=== PATIENT | male | born 1985 | race Caucasian/White ===

== ENCOUNTER 2017-03-18 00:02 | Emergency (ER) | payer MEDICAID ==
[~2017-03-18] VITALS: Ht 177.8 cm; Wt 86.2 kg
[2017-03-18 00:19] LABS: LYMPH % 37.1 % (10-50)
--- NOTE | 2017-03-18 00:40 | Emergency Room Report ---
History of Present Illness Time Seen by 001Laura Presenting Problem in Triage Pt arrived:Walked Presenting Problem:C/O PAIN TO CHEST SHARP CONSTANT PAIN X 20 MIN. 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 N Clinical Suspician of Infection? N Mental Status: 1 - Regular (Normal Baseline) Sepsis Risk:Low Sepsis Risk Have you (or family members/close friends) recently traveled outside the [place]? N If Yes, where/when: Have you had exposure to infectious disease within the past month? N TB? Other? Specify: Source patient, RN notes reviewed, family, old records Exam Limitations no limitations Comment acute onset of ant chest pain with rad to back with hx of gerd but no chest pain or ht disease Cardiac Chest Pain Chest pain indicative of cardiac No Timing/Duration this evening Severity moderate ALLERGIES Coded Allergies: No Known Allergies (03/18/17) Home Medications Reported Medications No Known Home Medications History Medical History General CAD? No Angina: No WV: No Hypertension? No Hyperlipidemia? No CHF? No DVT? No PE? No COPD? No Asthma? No Anemia? No GERD? No Gastric ulcers? No GI Bleed? No Hernia? No Thyroid Problems? No Hypothyroidism? No CVA? No Seizures? No Diabetes? No Renal Insuffiency? No End Stage Renal Disease? No UTI? No Stones? No BPH? No GB Disease: No Nephritic Syndrome? No Asplenia? No Hepatitis? No Sickle Cell Disease? No Arthritis? No Migraines? No Cataracts? No Glaucoma? No MRSA? No HIV? No TB? No Anxiety? No Depression? No Cancer? No Site: N More? No Immunization Hx DT/Tetanus 1-4 Years Ago Surgical Hx Previous Surgery?N Social History Smoking Hx Smoker: Current Every Day Smoker Tobacco: Yes Type Cigarettes Alcohol Alcohol: Yes Drugs none Review of Systems All Other Systems Reviewed and Negative Constitutional denies fever Eyes denies drainage ENT denies: ear pain, epistaxis, throat pain. Respiratory denies cough, denies shortness of breath, denies wheezing Cardiovascular see HPI, chest pain, denies palpitations, denies syncope Gastrointestinal denies abdominal pain, denies diarrhea, denies vomiting Genitourinary denies: dysuria, frequency, hesitancy, hematuria. Musculoskeletal denies back pain, denies joint pain, denies joint swelling, denies neck pain Skin denies rash Psychiatric/Neurological denies headache, denies seizure Physical Exam Vital Signs Vital Signs Date Time Temp Pulse Resp B/P Pulse O2 O2 Flow FiO2 Ox Delivery Rate 03/18 0150 71 20 109/56 96 03/18 0116 78 18 139/63 95 03/18 0104 81 18 122/51 95 03/18 0040 89 21 126/61 95 03/18 0020 90 20 114/59 95 03/18 0015 89 22 150/137 94 03/18 0010 127 18 177/111 95 03/18 0002 97.5 100 18 177/111 100 - WBC >12,000 or <4,000 or 10% bands? 2 or more SIRS Criteria Met? B/P:109/56 MAP:66 Creatinine >2.0? UA output<0.5ml/kg/hr for 2 hrs? Platelet count >100,000? Lactate >2.0mmol/1? INR >1.2 or PTT > than 60 sec? Evidence of Organ Dysfunction? Provider documented clinical suspician of infection? N Sepsis Criteria Count: 0 Sepsis Risk: Low Sepsis Risk General Appearance no apparent distress Eye Exam - bilateral eye PERRL, bilateral eye EOMI Ear, Nose, Throat normal ENT inspection Neck supple Respiratory Status No: respiratory distress. Lung Sounds bilateral: lungs clear. 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 No Results/Orders Laboratory Tests 03/18/17 0005: Amylase 56, Lipase 106 03/18/17 0005: Sodium 139, Potassium 4.6, Chloride 103, Carbon Dioxide 27, BUN 8, Creatinine 1.0, Estimated Creat Clear 132, Estimated GFR (MDRD) 88, Glucose 96, Calcium 8.9 , Total Bilirubin 0.4, AST 26, ALT 41, Alkaline Phosphatase 90, Creatine Kinase 207, CK-MB (CK-2) Rel Index 0.4, CK and CKMB Interp 0.9, Troponin I < 0.02, Total Protein 7.4, Albumin 3.8, Globulin 3.6 H, Albumin/Globulin Ratio 1.1, WBC 8.0, RBC 5.21, Hgb 17.0, Hct 48.9, MCV 94.0, RDW 12.6, Plt Count 174, MPV 5.9 L , Gran % 49.6, Gran # 4.0, Lymphocytes % 37.1, Monocytes % 7.9, Eosinophils % 4.8, Basophils % 0.7, Lymphocytes # 3.0, Monocytes # 0.6, Eosinophils # 0.4, Basophils # 0.1, PUBS MCHC 34.8, MCH 32.7 H Current Medication Orders Sig/Melva Start time Last Medication Dose Route Stop Time Status Admin Famotidine 0 .STK-MED ONE 03/18 110 DC IV Metoclopramide HCl 0 .STK-MED ONE 03/18 109 DC .ROUTE Famotidine 20 MG ONCE ONE 03/18 100 DC 03/18 IV 03/18 010 0113 Metoclopramide HCl 10 MG ONCE ONE 03/18 100 DC 03/18 IVP 03/18 010 0113 Sodium Chloride 8 ML ONCE ONE 03/18 100 DC 03/18 IV 03/18 010 0114 Ondansetron HCl 0 .STK-MED ONE 03/18 0028 DC .ROUTE Aspirin 324 MG ONCE ONE 03/18 15 DC 03/18 PO 03/18 001 0010 Nitroglycerin 0.4 MG ONCE ONE 03/18 15 DC 03/18 PO 03/18 001 0015 Sodium Chloride 10 ML PRN PRN 03/18 15 AC 03/18 IV 03/19 0009 0113 Aspirin 0 .STK-MED ONE 03/18 10 DC .ROUTE Nitroglycerin 0 .STK-MED ONE 03/18 10 DC SL Orders Procedure Date/time Status LIPASE 03/18 004 Complete AMYLASE 03/18 004 Complete ELECTROCARDIOGRAM REQUEST 03/18 10 Active CHEST(2 VIEWS-NOT PORTABLE) 03/18 10 Active IV SALINE LOCK 03/18 10 Active DESKTOP SPECIALIST 03/18 10 Active COMPLETE METABOLIC PANEL 03/18 10 Complete CBC WITH AUTO DIFF 03/18 10 Complete CARDIAC ENZYMES 03/18 10 Complete 12 LEAD EKG-SHASHANK (INITIAL) 03/18 0001 Active 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 of ischemic chgs XRAY/CT/US XRAY/CT/US XRAY chest XR interpretation by reviewed by me Xray Results normal/NAD Departure Departure Time of Disposition 015 Disposition DC Home or Self Care(routine) Clinical Impression Primary Impression: Chest pain Qualifiers: Chest pain type: unspecified Qualified Code: R07.9 - Chest pain, unspecified Condition STABLE Referrals ADDISON PA, RAFIA Thompson Patient Instructions DI for Atypical Chest Pain Additional Instructions see pcp for follow up and addt tests Discharge Counseling Counseled pt/family regarding diagnosis, test results, follow up needs Prescriptions Current Visit Scripts No Known Home Medications ED Critical Care Critical Care No at 0157
[2017-03-18 00:56] LABS: BUN 8 mg/dL (7-18); GFR (ESTIMATED) 88 ML/MIN (>60)
[2017-03-18 01:58] VITALS: BP 109/56
--- NOTE | 2017-03-18 07:49 | RADIOLOGY REPORT PS360 ---
CHEST(2 VIEWS-NOT PORTABLE) Ordering Physician: José Luis Briscoe MD Patient Age: 31 years: Male HISTORY: C/O CHEST PAINchest pain. Nonsmoker TECHNIQUE: PA and lateral chest FINDINGS Less optimal inspiration today than on the previous chest film to 316. With this are crowding and accentuation markings infrahilar region towards bases bilaterally.. Mild Bibasilar atelectasis - most evident on right lung base. Difficult to exclude a minimal infiltrate at the medial right lung base,/ right infrahilar region. The heart & mediastinal structures otherwise appears satisfactory. Hilar regions slightly more generous and upper normal prominence bilaterally- but likely accentuated by less optimal inspiration No pleural effusion. No pneumothorax. No chest wall or rib abnormalities on this routine chest. T-spine appears stable and intact. IMPRESSION: ------- Significantly less optimal inspiration today than previous study.This crowds markings at lung bases Mild Bibasilar atelectasis most evident right lung base. Difficult to exclude minimal infiltrate here at RLL lobe . No pneumothorax. No pleural effusion. No definite acute findings
--- OUTSIDE RECORDS SUMMARY | 2017-03-19 21:22 | External Medical Summary Rpt ---
Author Author , Organization [employer] Address Unknown Phone Unavailable Care Team Providers Care Unloader Name Role Phone SHAIKH ALL, SHAIKH ALL Unavailable Unavailable RIO OSULLIVAN-C Unavailable Unavailable RIO HOROWITZ-C CARLOS MANUEL [facility], Unavailable Unavailable [facility], Unavailable Unavailable [facility] MELLISA MISSY, MELLISA Unavailable Unavailable [facility] Un[facility] MOSER JACEY, EHSAN JACEY Unavailable Unavailable EHSAN MARI, EHSAN JACEY Unavailable Unavailable [facility], Unavailable Unavailable [facility] Unavailable Unavailable [facility], [facility] Purpose Continuity of Care Document - 01-03-2015 through 2016 Problems Code Diagnosis DOS Provider Status [id number] PAIN IN 03-24-2016 [facility] H5213 MYOPIA 01-11-2016 MOS[facility] JACEY BILATERAL 22563 UNSPECIFIED 02-12-2015 [facility] [place] [facility] 4619 ACUTE 02-12-2015 [facility] SINUSITIS, PHYSICIANS UNSPECIFIED GROUP 7862 COUGH 02-12-2015 [facility] 7241 PAIN IN 01-03-2015 [facility] THORACIC [facility] SPINE 7242 LUMBAGO 01-03-2015 [facility] 7393 NONALLOPATH 01-03-2015 [facility] LESION [facility] OF LUMBAR REGION NEC 7395 NONALLOPATH 01-03-2015 [facility]INO IC LESION [facility] OF PELVIC REGION NEC Procedures Procedure DOS Code Location Performer Comment RADEX 03162 [facility] COMPLETE INC INC MINIMUM 3 VIEWS RADEX 63801 [place] [facility] 2 6 MEDICAL VIEWS IMAGING ASS OPHTH 79334 EHSAN MOSER JACEY MEDICAL 6 XM&EVAL COMPRE NEW PT 1/> VST INJECTION J1040 [facility] MELLISA 5 PHYSICIAN MISSY METHYLPRE S GROUP DNISOLONE ACETATE 80 MG THERAPEUT 57285 [facility] MELLISA IC 5 PHYSICIAN MISSY PROPHYLAC S GROUP TIC/DX INJECTION SUBQ/IM CHIROPRAC 44965 WILBER MERINO TIC 5 [facility] BE[facility] MANIPULAT JUANCARLOS [place] SPINAL 1-2 REGIONS Encounters Encounter Start End Date Code Location Performer Type Date [facility] - 6 6 [facility] OUTPATIEN INC T OFFICE 88174 [facility] RIO [place]S [place] 6 6 PHYSICIAN STONE T VISIT S GROUP RAINA HOROWITZ 10 MINUTES OFFICE 21876 [facility] MELLISA OUTPATIEN 5 5 PHYSICIAN MISSY T NEW 20 S GROUP MINUTES
--- OUTSIDE RECORDS SUMMARY | 2017-03-19 21:22 | External Medical Summary Rpt ---
Author Author VIN[facility] Mullins, [employer] Organization [employer] Address Unknown Phone Unavailable
--- OUTSIDE RECORDS SUMMARY | 2017-03-19 21:22 | External Medical Summary Rpt ---
Author Author , Organization [employer] Address Unknown Phone Unavailable Care Team Providers Care Lead Sewage Plant Operator Name Role Phone SHAIKH ALL, SHAIKH ALL Unavailable Unavailable PATEPADMA JAIME PA-C Unavailable Unavailable CARLOS MANUEL, RIO JAIME PA-C CARLOS MANUEL [facility], Unavailable Unavailable [facility], Unavailable Unavailable [facility] MELLISA MISSY, MELLISA Unavailable Unavailable [facility] Un[facility] MOSER JACEY, [facility] JACEY Unavailable Unavailable [facility] J[facility]Y, MOS[facility] JACEY Unavailable Unavailable [facility], Unavailable Unavailable [facility] Unavailable Unavailable [facility], [facility] Purpose Continuity of Care Document - 01-03-2015 through 2016 Problems Code Diagnosis DOS Provider Status [id number] PAIN IN 03-24-2016 [facility] H5213 MYOPIA 01-11-2016 MOSER JACEY BILATERAL 49373 UNSPECIFIED 02-12-2015 [facility] [place] [facility] 4619 ACUTE 02-12-2015 [facility] SINUSITIS, PHYSICIANS UNSPECIFIED GROUP 7862 COUGH 02-12-2015 [facility] 7241 PAIN IN 01-03-2015 [facility] THORACIC [facility] SPINE 7242 LUMBAGO 01-03-2015 [facility] 7393 NONALLOPATH 01-03-2015 [facility] IC LESION [facility] OF LUMBAR REGION NEC 7395 NONALLOPATH 01-03-2015 [facility] IC LESION [facility] OF [place] NEC R07.9 CHEST PAIN, UNSPECIFIED Procedures Procedure DOS Code Location Performer Comment RADEX 39074 [place] [facility] 2 6 MEDICAL VIEWS IMAGING ASS RADEX 35751 [facility] COM[facility]TE INC INC MINIMUM 3 VIEWS OPHTH 81081 E[facility]AN FAJARDONES JACEY MEDICAL 6 XM&EVAL COMPRE NEW PT 1/> VST THERAPEUT 06314 [facility] MELLISA IC 5 PHYSICIAN MISSY PROPHYLAC S GROUP TIC/DX INJECTION SUBQ/IM INJECTION J1040 [facility] MELLISA 5 PHYSICIAN MISSY METHYLPRE S GROUP DNISOLONE ACETATE 80 MG CHIROPRAC 12074 WILBER MERINO TIC 5 [facility] BEBO MANIPULAT JUANCARLOS [place] SPINAL 1-2 REGIONS Encounters Encounter Start End Date Code Location Performer Type Date OFFICE 74709 [facility] RIO [facility] 6 6 PHYSICIAN STONE T VISIT S GROUP RAINA HOROWITZ 10 MINUTES [facility] ORLY - 6 6 [facility] OUTPATIEN [facility] T OFFICE 13503 [facility] MELLISA LO 5 5 PHYSICIAN MISSY T NEW 20 S GROUP MINUTES
--- OUTSIDE RECORDS SUMMARY | 2017-03-19 21:22 | External Medical Summary Rpt ---
Author Author , Organization [employer] Address Unknown Phone Unavailable Care Team Providers Care Glaze Wiper Name Role Phone SHAIKH ALL, SHAIKH ALL Unavailable Unavailable PATEPADMA JAIME PA-C Unavailable Unavailable CARLOS MANUEL, RIO JAIME PA-C CARLOS MANUEL [facility], Unavailable Unavailable [facility], Unavailable Unavailable [facility] MELLISA MISSY, MELLISA Unavailable Unavailable [facility] Un[facility] MOSER JACEY, [facility] J[facility]Y Unavailable Unavailable [facility] J[facility], [facility] JACEY Unavailable Unavailable [facility], Unavailable Unavailable [facility] Unavailable Unavailable [facility], [facility] Purpose Continuity of Care Document - 01-03-2015 through 2016 Problems Code Diagnosis DOS Provider Status [id number] PAIN IN 03-24-2016 [facility] H5213 MYOPIA 01-11-2016 MOSER JACEY BILATERAL 90263 UNSPECIFIED 02-12-2015 [facility] [place] [facility] 4619 ACUTE 02-12-2015 [facility] SINUSITIS, PHYSICIANS UNSPECIFIED GROUP 7862 COUGH 02-12-2015 [facility] 7241 PAIN IN 01-03-2015 [facility]ORAC[facility] SPINE 7242 LUMBAGO 01-03-2015 [facility] 7393 NONALLOPATH 01-03-2015 MERINO IC LESION [facility] OF LUMBAR REGION NEC 7395 NONALLOPATH 01-03-2015 MER[facility] IC LESION [facility] OF [place] REG[place] NEC R07.9 CHEST PAIN, UNSPECIFIED Procedures Procedure DOS Code Location Performer Comment RADEX 17097 [place] SHAIKH ALL [facility] 2 6 MEDICAL VIEWS IMAGING ASS RADEX 08488 [facility] COMPLETE INC INC MINIMUM 3 VIEWS OPHTH 69601 EHSAN FAJARDONES JACEY MEDICAL 6 XM&EVAL COMPRE NEW PT 1/> VST THERAPEUT 18996 [facility] MELLISA IC 5 PHYSICIAN MISSY PROPHYLAC S GROUP TIC/DX INJECTION SUBQ/IM INJECTION J1040 [facility] MELLISA 5 PHYSICIAN MISSY METHYLPRE S GROUP DNISOLONE ACETATE 80 MG CHIROPRAC 10588 WILBER MERINO TIC 5 BEBO BEBO MANIPULAT JUANCARLOS [place] SPINAL 1-2 REGIONS Encounters Encounter Start End Date Code Location Performer Type Date OFFICE 58888 [facility] RIO [facility] 6 6 PHYSICIAN STONE T VISIT S GROUP RAINA HOROWITZ 10 MINUTES [facility] ORLY - 6 6 [facility] OUTPATIEN [facility] T OFFICE 98088 [facility] MELLISA LO 5 5 PHYSICIAN MISSY T NEW 20 S GROUP MINUTES
--- OUTSIDE RECORDS SUMMARY | 2017-03-19 21:22 | External Medical Summary Rpt ---
Demographics Preferred Language Australian Marital Status Unknown Adventism Affiliation Unknown Race Unknown Ethnic Group Unknown Author Author , Organization [employer] Address Unknown Phone Unavailable Purpose Continuity of Care Document - through 2016 Immunization No patient found.
--- OUTSIDE RECORDS SUMMARY | 2017-03-19 21:22 | External Medical Summary Rpt ---
Demographics Preferred Language Slovenian Marital Status Unknown Yarsani Affiliation Unknown Race Unknown Ethnic Group Unknown Author Author , Organization [employer] Address Unknown Phone Unavailable Purpose Continuity of Care Document - through 2016 Immunization No patient found.
--- OUTSIDE RECORDS SUMMARY | 2017-03-19 21:22 | External Medical Summary Rpt ---
Author Author , Organization [employer] Address Unknown Phone Unavailable Care Team Providers Care Rn Resource Nurse Name Role Phone SHAIKH ALL, SHAIKH ALL Unavailable Unavailable RIO OSULLIVAN-C Unavailable Unavailable RIO HOROWITZ-C CARLOS MANUEL [facility], Unavailable Unavailable [facility], Unavailable Unavailable [facility] MELLISA MISSY, MELLISA Unavailable Unavailable [facility] Un[facility] MOSER JACEY, EHSAN JACEY Unavailable Unavailable EHSAN MARI, EHSAN JACEY Unavailable Unavailable [facility], Unavailable Unavailable [facility] Unavailable Unavailable [facility], [facility] Purpose Continuity of Care Document - 01-03-2015 through 2016 Problems Code Diagnosis DOS Provider Status [id number] PAIN IN 03-24-2016 [facility] H5213 MYOPIA 01-11-2016 MOSER JACEY BILATERAL 84070 UNSPECIFIED 02-12-2015 [facility] [place] [facility] 4619 ACUTE 02-12-2015 [facility] SINUSITIS, PHYSICIANS UNSPECIFIED GROUP 7862 COUGH 02-12-2015 [facility] 7241 PAIN IN 01-03-2015 [facility] THORACIC [facility] SPINE 7242 LUMBAGO 01-03-2015 [facility] 7393 NONALLOPATH 01-03-2015 [facility] IC LESION BE[facility] OF LUMBAR REGION NEC 7395 NONALLOPATH 01-03-2015 [facility] IC LESION [facility] OF PELVIC REGION NEC Procedures Procedure DOS Code Location Performer Comment RADEX 47931 [facility] COMPLETE INC INC MINIMUM 3 VIEWS RADEX 72083 [place] [facility] 2 6 MEDICAL VIEWS IMAGING ASS OPHTH 19888 EHSAN MOSER JACEY MEDICAL 6 XM&EVAL COMPRE NEW PT 1/> VST INJECTION J1040 [facility] MELLISA 5 PHYSICIAN MISSY METHYLPRE S GROUP DNISOLONE ACETATE 80 MG THERAPEUT 49377 [facility] MELLISA IC 5 PHYSICIAN MISSY PROPHYLAC S GROUP TIC/DX INJECTION SUBQ/IM CHIROPRAC 70530 WILBER MERINO TIC 5 BEBO BEBO MANIPULAT JUANCARLOS [place] SPINAL 1-2 REGIONS Encounters Encounter Start End Date Code Location Performer Type Date [facility] ORLY - 6 6 [facility] OUTPATIEN INC T OFFICE 73722 [facility] RIO [facility] 6 6 PHYSICIAN STONE T VISIT S GROUP RAINA HOROWITZ 10 MINUTES OFFICE 08828 [facility] MELLISA OUTPATIEN 5 5 PHYSICIAN MISSY T NEW 20 S GROUP MINUTES
== END 2017-03-18 02:04 | disposition home or self-care (01) ==
LOC: ER 00:02
PROVIDERS: Emergency Medicine
DX: R07.9 Chest pain, unspecified (principal); Z72.0 Tobacco use
CPT/HCPCS: J2405